=== PATIENT | male | born 1970 ===

== ENCOUNTER 2016-06-10 01:09 | Emergency (ER) | payer MEDICARE, OTHER ==
[2016-06-10 01:09] VITALS: BMI 32.8
[2016-06-10 01:24] VITALS: O2SAT 96
--- NOTE | 2016-06-10 02:28 | CT ---
EXAM: CT Head Without Intravenous Contrast CLINICAL HISTORY: 46 years old, male; Pain; Headache; Patient HX: 9-26-16; Additional info: Right sided headache TECHNIQUE: Axial computed tomography images of the head/brain without intravenous contrast. This CT exam was performed using one or more of the following dose reduction techniques: automated exposure control, adjustment of the mA and/or kV according to patient size, and/or use of iterative reconstruction technique. COMPARISON: No relevant prior studies available. FINDINGS: Brain: No acute intracranial hemorrhage. No significant white matter disease. No edema. Ventricles: No significant ventriculomegaly. Bones: No acute displaced fracture. Sinuses: Unremarkable as visualized. No acute sinusitis. Mastoid air cells: Unremarkable as visualized. No mastoid effusion. IMPRESSION: No acute intracranial hemorrhage, or suspicious mass effect.
--- NOTE | 2016-06-10 02:35 | C.PDOC ---
History Of Present Illness Pt c/o right sided headache. Time Seen by Provider: 06/10/16 01:39 Chief Complaint (Nursing): Headache History Per: Patient Onset/Duration Of Symptoms: Hrs (this evening), Gradual Current Symptoms Are (Timing): Still Present Severity: Moderate Quality: "Pain" Associated Symptoms: Photophobia Additional History Per: Prior Records Past Medical History Reviewed: Historical Data, Nursing Documentation, Vital Signs Vital Signs: Last Vital Signs Temp 97.4 F L 06/10/16 01:20 Pulse 80 06/10/16 01:20 Resp 20 06/10/16 01:20 BP 129/81 06/10/16 01:20 Pulse Ox 96 06/10/16 02:35 - Medical History PMH: Anxiety, Back Problems (Disc herniation), CAD, Depression, HTN, Hypercholesterolemia, Hyperlipidemia, Migraine, Sleep Apnea (C PAP [employer]TING [employer]) Surgical History: Coronary Stent (x4) - [facility] Procedures CORONAR ARTERIOGR-2 CATH (06/21/14) CORONARY ARTERY STENT INSERTION [id number] (11/11/12) INJECT/INFUSE ELECTROLYT (06/30/13) INJECT/INFUSE NEC (08/01/14) INSERTION OF ONE VASCULAR STENT (03/02/14) INSRT OF DRUG-ELUTING CORON ARTERY STENTS(S) (03/02/14) LEFT HEART CARDIAC CATH (06/21/14) LT HEART ANGIOCARDIOGRAM (06/21/14) NEBULIZER THERAPY (02/06/04) OTHER SKIN & SUBQ I D (04/07/04) PERCUTANEOUS TRANSLUMINAL CORONARY ANGIOPLASTY [PTCA] (03/02/14) PROCEDURE ON SINGLE VESSEL (03/02/14) PSYCHIAT DRUG THERAP NEC (10/01/12) VACCINATION NEC (12/23/12) Family History: States: Unknown Family Hx - Social History Hx Tobacco Use: No Hx Alcohol Use: No Hx Substance Use: No - Immunization History Hx Tetanus Toxoid Vaccination: No Hx Influenza Vaccination: Yes Hx Pneumococcal Vaccination: No Review Of Systems Except As Marked, All Systems Reviewed And Found Negative. Constitutional: Negative for: Fever, Weakness Eyes: Negative for: Vision Change ENT: Positive for: Nose Congestion Cardiovascular: Negative for: Chest Pain Respiratory: Negative for: Shortness of Breath Gastrointestinal: Negative for: Vomiting, Abdominal Pain Musculoskeletal: Negative for: Neck Pain Skin: Negative for: Rash Neurological: Positive for: Headache. Negative for: Weakness, Numbness, Incoordination, Change in Speech, Confusion, Seizures, Altered Mental Status, Dizziness Physical Exam - Physical Exam Appears: Non-toxic, No Acute Distress Skin: Normal Color, Warm, Dry, No Rash Head: Atraumatic, Normacephalic Eye(s): bilateral: Normal Inspection, PERRL, EOMI Ear(s): Bilateral: Normal Neck: Normal ROM, Supple Cardiovascular: Rhythm Regular Respiratory: Normal Breath Sounds, No Accessory Muscle Use Gastrointestinal/Abdominal: Soft, No Tenderness Extremity: Normal ROM Neurological/Psych: Oriented x3, Normal Speech, Normal Cognition, Normal Cranial Nerves, No Cerebellar Signs, Normal Motor, Normal Sensation ED Course And Treatment O2 Sat by Pulse Oximetry: 96 Pulse Ox Interpretation: Normal - CT Scan/US CT head Other Rad Studies (CT/US): Read By Radiologist, Radiology Report Reviewed CT/US Interpretation: IMPRESSION: No acute intracranial hemorrhage, or suspicious mass effect. Progress Note: Pt feels much better and wants to go home. Reassessment Condition: Improved Disposition Counseled Patient/Family Regarding: Studies Performed, Diagnosis, Need For Followup, Rx Given - Disposition Referrals: Kadie Silva MD [Staff Provider] - Disposition: HOME/ ROUTINE Disposition Time: 02:43 Condition: IMPROVED Additional Instructions: Follow up with your doctor. Return to the ER if you develop vomiting, neck pain , weakness, numbness, change in vision, worsening of symptoms or if you have any other concerns. Prescriptions: Fluticasone Propionate [Flonase] 2 spr NS DAILY #1 bottle Instructions: Acute Headache (ED) - Clinical Impression Clinical Impression: Right-sided headache
[2016-06-10 02:58] VITALS: BP 129/84; PULSE 69; RESP 18; TEMP 97.6
== END 2016-06-10 03:04 | disposition home or self-care (01) ==
LOC: C.ER 01:09
DX: R51 Headache (principal)
CPT/HCPCS: 70450; 96372; 99284; J1885